=== PATIENT | male | born 1990 | race Caucasian/White ===

== ENCOUNTER 2016-07-03 18:18 | Emergency (ER) | payer SELFPAY ==
[~2016-07-03] VITALS: Ht 162.6 cm; Wt 81.6 kg
[2016-07-03 19:16] VITALS: BP 142/82
[2016-07-03 20:23] LABS: OBC FLU VALID
[2016-07-03] MEDS ORDERED: PROAIR HFA8.5 GM INH (20:53)
[2016-07-03] MEDS ORDERED: PRED20TA PO (20:53)
--- NOTE | 2016-07-03 20:53 | PHYS DOC ---
Past Medical History Past Medical History: No Pertinent History Past Surgical History: No Surgical History Additional Information: Nonsmoker Alcohol Use: None Drug Use: None Adult General Chief Complaint Chief Complaint: COUGH HPI HPI Patient is a 26 year old male who presents with subjective fever and productive cough starting yesterday. He also reports nasal congestion and sore throat. He denies shortness of breath, ear pain, vomiting, or diarrhea. He did not receive a flu shot this season. His is ill with similar symptoms. The patient also works at a daycare center. He does not have a PCP. Review of Systems Review of Systems Constitutional: Reports subjective fever. Eyes: Denies change in visual acuity, redness, or eye pain. [] HENT: Denies ear pain. Reports sore throat and nasal congestion. Respiratory: Denies shortness of breath. Reports productive cough. Cardiovascular: Denies chest pain, palpitations or edema. [] GI: Denies abdominal pain, nausea, vomiting, bloody stools or diarrhea. [] : Denies dysuria, hematuria or urinary frequency. [] Musculoskeletal: Denies back pain or joint pain. [] Integument: Denies rash or skin lesions. [] Neurologic: Denies headache, focal weakness or sensory changes. [] Endocrine: Denies polyuria or polydipsia. [] Psych: Denies anxiety or depression. [] All systems reviewed and negative unless otherwise stated in the HPI. Allergies Allergies Allergies Coded Allergies Type Severity Reaction Last Updated Verified No Known Drug Allergies 07/03/16 No Physical Exam Physical Exam Constitutional: Well developed, well nourished, no acute distress, non-toxic appearance. [] HENT: Normocephalic, atraumatic, bilateral external ears normal, oropharynx moist, no oral exudates, nose normal. Bilateral TMs without erythema or bulging. There is mild posterior pharyngeal erythema without tonsillar edema or exudates. Bilateral nasal turbinates are swollen and erythematous. Eyes: PERRLA, EOMI, conjunctiva normal, no discharge. [] Neck: Normal range of motion, no tenderness, supple, no stridor. [] Cardiovascular: Heart rate regular rhythm, no murmur [] Lungs & Thorax: Bilateral breath sounds clear to auscultation without wheezes, rales, or rhonchi. Skin: Warm, dry, no erythema, no rash. [] Neurologic: Alert and oriented X 3, normal motor function, normal sensory function, no focal deficits noted. [] Psychologic: Affect normal, judgement normal, mood normal. [] Current Patient Data Vital Signs Vital Signs Date Time Temp Pulse Resp B/P Pulse Ox O2 Delivery O2 Flow Rate FiO2 07/03/16 19:16 98.6 86 16 142/82 98 Room Air 98.6 Lab Values Laboratory Tests Test 07/03/16 19:45 Influenza Type A Antigen Negative (NEGATIVE) Influenza Type B Antigen Negative (NEGATIVE) Rapid strep negative EKG EKG [] Radiology/Procedures Radiology/Procedures [] Course & Med Decision Making Course & Med Decision Making Pertinent Labs and Imaging studies reviewed. (See chart for details) [] Dragon Disclaimer Dragon Disclaimer This electronic medical record was generated, in whole or in part, using a voice recognition dictation system. Departure Departure Impression: Primary Impression: URI (upper respiratory infection) Disposition: HOME, SELF-CARE Condition: STABLE Referrals: NO PCP (PCP) Patient Instructions: Upper Respiratory Infection, Adult, [id number] Additional Instructions: Your flu and strep tests were negative today. You appear to have a viral upper respiratory infection. Antibiotics do not help to treat viral infections. Please complete all the prescribed steroids, even if you are feeling better. Please use the prescribed inhaler as needed for cough or shortness of breath. Do not use more often than directed. Please follow-up with a primary care provider within the next week. Return to the emergency department if you have any new or concerning symptoms. Scripts Albuterol Sulfate (Proair Hfa Inhaler)8.5 Gm [id number] Puff INH Q4HRS PRN SHORTNESS OF BREATH #1 INHALER Prov:MILAN LINDO 07/03/16 Prednisone 20 Mg [id number] Mg PO DAILY 5 Days Prov:MILAN LINDO 07/03/16 Problem Qualifiers Primary Impression: URI (upper respiratory infection) URI type: unspecified viral URI Qualified Code: J06.9 - Acute upper respiratory infection, unspecified MILAN LINDO Jul 03, 2016 20:53
[2016-07-04 06:27] LABS: NEGATIVE OBC STREP NEG; POSITIVE OBC STREP POS
== END 2016-07-03 20:59 | disposition home or self-care (01) ==
LOC: ER 18:18
DX: J06.9 Acute upper respiratory infection, unspecified (principal)
CPT/HCPCS: 87070; 87804; 87880; 99284

== ENCOUNTER 2016-08-07 19:24 | Emergency (ER) | payer SELFPAY ==
[~2016-08-07] VITALS: Ht 167.6 cm; Wt 108.9 kg
[~2016-08-07 19:24] MED LIST: PRED20TA PO; PROAIR HFA8.5 GM INH
[2016-08-07 19:27] VITALS: BP 148/88
[2016-08-07] MEDS ORDERED: TETRACAINE 0.5% OPHTH SOLUTION 4ML BOTTLE. OS ONE (20:00)
[2016-08-07] MEDS ORDERED: FLUORESCEIN OPHTH TEST STRIP. OS ONE (20:00)
[2016-08-07] MEDS ORDERED: ERYT1OIN6 EACHEYE (20:21)
--- NOTE | 2016-08-07 20:21 | PHYS DOC ---
Past Medical History Past Medical History: No Pertinent History Past Surgical History: No Surgical History Alcohol Use: None Drug Use: None Adult General Chief Complaint Chief Complaint: FOREIGN BODY/EYES HPI HPI Patient is a 26 year old male who presents with right eye irritation after her cell phone screen broke and got into his right eye yesterday. Patient denies any vision loss. Review of Systems Review of Systems Constitutional: Denies fever or chills [] Eyes: Denies change in visual acuity, redness, or eye pain [] HENT: right eye irritation Integument: Denies rash or skin lesions [] Neurologic: Denies headache, focal weakness or sensory changes [] Endocrine: Denies polyuria or polydipsia [] Current Medications Current Medications Current Medications Medications (Trade) Dose Ordered Sig/Lavelle Start Time Stop Time Status Last Admin Dose Admin Fluorescein Sodium (Ful-Katie) 1 strip 1X ONCE 08/07/16 20:00 08/07/16 20:01 DC 08/07/16 19:55 1 STRIP Tetracaine HCl (Tetracaine) 1 drop 1X ONCE 08/07/16 20:00 08/07/16 20:01 DC 08/07/16 19:55 1 DROP Allergies Allergies Allergies Coded Allergies Type Severity Reaction Last Updated Verified No Known Drug Allergies 07/03/16 No Physical Exam Physical Exam Constitutional: Well developed, well nourished, no acute distress, non-toxic appearance. [] HENT: Normocephalic, atraumatic, bilateral external ears normal, oropharynx moist, no oral exudates, nose normal. [] Eyes: PERRLA, EOMI, right conjunctiva has small amount of injection. See visual exam under procedures. Skin: Warm, dry, no erythema, no rash. [] Back: No tenderness, no CVA tenderness. [] Extremities: No tenderness, no cyanosis, no clubbing, ROM intact, no edema. [] Neurologic: Alert and oriented X 3, normal motor function, normal sensory function, no focal deficits noted. [] Psychologic: Affect normal, judgement normal, mood normal. [] Current Patient Data Vital Signs Vital Signs Date Time Temp Pulse Resp B/P Pulse Ox O2 Delivery O2 Flow Rate FiO2 08/07/16 19:27 96.6 90 18 98 Room Air 96.6 EKG EKG [] Radiology/Procedures Radiology/Procedures Indication: Foreign object to the right eye Procedure: The area of the foreign body was right eye. Local anesthesia over the foreign body site was 2 drops of tetracaine, the eye was stained with fluorescein, visual exam was done under simms Lamp, patient has a tiny corneal abrasion to the right eye at the 1500 position. The patient tolerated the procedure well Complications: none Course & Med Decision Making Course & Med Decision Making Pertinent Labs and Imaging studies reviewed. (See chart for details) Patient has corneal abrasion to the right eye. Discharged with erythromycin eye ointment. Follow-up with primary care doctor or the provided field education coordinator in one week if symptoms continue. Dragon Disclaimer Dragon Disclaimer This electronic medical record was generated, in whole or in part, using a voice recognition dictation system. Departure Departure Impression: Primary Impression: Corneal abrasion, right Disposition: 01 HOME, SELF-CARE Condition: STABLE Referrals: NO PCP (PCP) [facility] MD Follow-up with your field education coordinator or the provided field education coordinator in one week if symptoms continue Patient Instructions: Eye - Corneal Abrasion Additional Instructions: You have corneal abrasion to the right eye. Use the provided eye ointment as ordered. Come back to the ED if symptoms worsen. Take Tylenol /Motrin for pain. Follow-up with the provided field education coordinator in one week if symptoms continues. Scripts Erythromycin Base (Erythromycin)3.5 Gm Oint...g.1 [facility] [employer] Q4HRS W/A #3.5 GM Prov:YULISSA RAMIREZ APRN 08/07/16 Problem Qualifiers Primary Impression: Corneal abrasion, right Encounter type: initial encounter Qualified Code: S05.01XA - Injury of conjunctiva and corneal abrasion without foreign body, right eye, initial encounter YULISSA RAMIREZ [employer] Aug 07, 2016 20:21
== END 2016-08-07 20:25 | disposition home or self-care (01) ==
LOC: ER 19:24
DX: S05.01XA Injury of conjunctiva and corneal abrasion without foreign body, right eye, initial encounter (principal); W22.8XXA Striking against or struck by other objects, initial encounter; Y93.89 Activity, other specified; Y92.89 Other specified places as the place of occurrence of the external cause; Y99.8 Other external cause status
CPT/HCPCS: 99283

== ENCOUNTER 2016-10-17 07:53 | Emergency (ER) | payer SELFPAY ==
[~2016-10-17] VITALS: Ht 170.2 cm; Wt 104.3 kg
[~2016-10-17 07:53] MED LIST changes: +ERYT1OIN6 EACHEYE
[2016-10-17 08:08] VITALS: BP 126/92
[2016-10-17] MEDS ORDERED: IBUPROFEN 600 MG TABLET. PO ONE (08:15)
[2016-10-17] MEDS ORDERED: CYCL5TAB PO (08:19)
[2016-10-17] MEDS ORDERED: IBUP-1007 PO (08:19)
[2016-10-17] MEDS ORDERED: HYDR-971 PO (08:19)
--- NOTE | 2016-10-17 08:19 | PHYS DOC ---
Past Medical History Past Medical History: No Pertinent History Past Surgical History: Other Additional Past Surgical Histo: EYE SX Alcohol Use: None Drug Use: None Adult General Chief Complaint Chief Complaint: LOWER BACK PAIN OR INJURY HPI HPI Patient is a 26 year old male who presents with lower back pain. Patient reports 2 day history of pain to left lower back which is worse with movement and lifting. Denies any trauma or heavy lifting preceding the onset of pain that he works in [employer] center. Denies fevers or chills, abdominal pain, dysuria/hematuria, bowel or bladder incontinence or retention, saddle anesthesia , lower extremity numbness or weakness. Reports previous history of back injury , thinks he has a disc injury. Took ibuprofen at home without relief of symptoms. Review of Systems Review of Systems Constitutional: Denies fever or chills HENT: Denies nasal congestion or sore throat Respiratory: Denies cough or shortness of breath Cardiovascular: Denies chest pain GI: Denies abdominal pain, nausea, vomiting : Denies dysuria or hematuria Musculoskeletal: Reports back pain Integument: Denies rash or skin lesions Neurologic: Denies headache, focal weakness or sensory changes Current Medications Current Medications Current Medications Medications (Trade) Dose Ordered Sig/Lavelle Start Time Stop Time Status Last Admin Dose Admin Ibuprofen (Motrin) 600 mg 1X ONCE 10/17/16 08:15 10/17/16 08:18 DC 10/17/16 08:23 600 MG Allergies Allergies Allergies Coded Allergies Type Severity Reaction Last Updated Verified Penicillins Allergy Intermediate 10/17/16 Yes Physical Exam Physical Exam Constitutional: Obese, no acute distress, non-toxic appearance. HENT: Normocephalic, atraumatic, bilateral external ears normal, oropharynx moist, nose normal. Eyes: conjunctiva normal, no discharge. Cardiovascular: RRR, no murmurs, no edema. Lungs & Thorax: LCTAB, no wheezing, no respiratory distress. Abdomen: soft, nontender, nondistended. No masses or pulsatile masses Skin: Warm, dry, no erythema, no rash. Back: Muscular tenderness to left lower back, no spinal tenderness or step-offs , no CVA tenderness. Extremities: No tenderness, no edema. Neurologic: Alert and oriented X 3, symmetric strength and sensation to lower extremities Psychologic: Affect normal, judgement normal, mood normal. Current Patient Data Vital Signs Vital Signs Date Time Temp Pulse Resp B/P (MAP) Pulse Ox O2 Delivery O2 Flow Rate FiO2 10/17/16 08:08 97.5 79 18 97 Room Air 97.5 EKG EKG [] Radiology/Procedures Radiology/Procedures [] Course & Med Decision Making Course & Med Decision Making Pertinent Labs and Imaging studies reviewed. (See chart for details) Patient presents with lower back pain. No red flag symptoms to suggest serious etiology of pain, no bony tenderness, no urinary symptoms. Suspect musculoskeletal injury/strain. Recommend supportive care with rest though not complete bedrest, be sure to maintain some level of activity, ice/heat, ibuprofen every 8 hours, Flexeril and Stevens as needed for severe muscle spasm and pain. No drinking alcohol or driving while taking these medications. Follow- up with primary care physician as needed if not improving in one to 2 weeks. Return to the emergency department for symptoms of cauda equina syndrome, high fever, any otherwise worsening condition. Discharged home in stable condition. [] Dragon Disclaimer Dragon Disclaimer This electronic medical record was generated, in whole or in part, using a voice recognition dictation system. Departure Departure Impression: Primary Impression: Lumbar strain Disposition: HOME, SELF-CARE Condition: STABLE Referrals: NO PCP (PCP) RANDI OLMEDO MD Patient Instructions: Back Pain, Adult, [id number] Additional Instructions: You were seen in the emergency department today for back pain. This is likely muscle strain. Please try to stay active without complete bed rest, but can limit strenuous activity or heavy lifting, apply ice or heat, take ibuprofen 600 mg every 8 hours, use flexeril for muscle spasm & norco for severe breakthrough pain. No drinking alcohol or driving while taking these medications. Follow up with Dr. Olmedo as needed in primary care clinic if not improving in 1-2 weeks. Come back for high fever, severe abdominal pain, numbness or weakness in legs, loss of control of bowels or bladder, numbness in groin, any otherwise worsening condition. Scripts Hydrocodone/Apap 5-325 (NORCO 5-325 TABLET) 1 Each Tablet 1 TAB PO PRN Q6HRS Y for PAIN, #10 TAB 0 Refills Prov: DAYSI QUIROZ MD 10/17/16 Ibuprofen (IBUPROFEN) 600 Mg Tablet 600 MG PO PRN Q6HRS Y for INFLAMMATION, #20 TAB Prov: DAYSI QUIROZ MD 10/17/16 Cyclobenzaprine Hcl (CYCLOBENZAPRINE HCL) 5 Mg Tablet 1 TAB PO TID Y for MUSCLE SPASMS, #10 TAB Prov: DAYSI QUIROZ MD 10/17/16 Problem Qualifiers Primary Impression: Lumbar strain Encounter type: initial encounter Qualified Codes: S39.012A - Strain of muscle, fascia and tendon of lower back, initial encounter DAYSI QUIROZ MD Oct 17, 2016 08:19
== END 2016-10-17 08:28 | disposition home or self-care (01) ==
LOC: ER 07:53
DX: S39.012A Strain of muscle, fascia and tendon of lower back, initial encounter (principal); Z88.0 Allergy status to penicillin; X58.XXXA Exposure to other specified factors, initial encounter; Y93.89 Activity, other specified; Y92.89 Other specified places as the place of occurrence of the external cause; Y99.8 Other external cause status
CPT/HCPCS: 99283